=== PATIENT | male | born 2005 | race African-American/Black ===

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

== ENCOUNTER 2025-03-19 04:50 | Outpatient (CLI) | payer BC, SELFPAY ==
[2025-03-19 13:58] LABS: Calculated LDL 120 mg/dL (<100); Cholesterol 172 mg/dL (<200); HDL Cholesterol 47 mg/dL (>or=40); Triglyceride 26 mg/dL (<150)
[2025-03-20 16:15] LABS: TSH (W/Ref FT4) 1.94 uIU/mL (0.52-4.13)
== END 2025-03-19 04:51 | disposition home or self-care (01) ==
LOC: LBO 04:55
PROVIDERS: PCP Pediatrics; Visit Provider Pediatrics
DX: E78.5 Hyperlipidemia, unspecified (principal)
CPT/HCPCS: 36415; 80061; 84443